=== PATIENT | female | born 1970 | race Caucasian/White ===

== ENCOUNTER 2017-04-14 17:37 | Emergency (ER) | payer BC ==
[2017-04-14 18:09] LABS: Hematocrit 40.4 % (37.0-47.0); Hemoglobin 14.2 gm/dL (12.5-16.0); Mean Cell Volume 103.3 fl (78-100); Mean Corpuscular Hemoglobin 36.3 pg (27-31); Mean Corpuscular Hgb Conc 35.1 g/dl (32-36); Neutrophil # 4.1 K/mm3 (1.3-6.0); Neutrophil % 53.2 % (42-75.0); Platelet Count 178 K/mm3 (150-450); Red Blood Count 3.91 M/mm3 (4.2-5.4); Red Cell Distribution Width 13.7 % (11.5-14.0); White Blood Count 7.6 K/mm3 (4.0-10.5)
[2017-04-14 18:27] LABS: ALT 49 U/L (19-67); AST 39 U/L (0-48); Albumin * 3.5 gm/dl (3.4-5.0); Alkaline Phosphatase * 80 U/L (50-170); Anion Gap 13.3 mmol/L (6.8-13.8); BUN/Creatinine Ratio 12.3 (9.0-21.6); Bilirubin, Total 0.7 mg/dL (0.0-1.1); Blood Urea Nitrogen 10 mg/dL (3-23); Ca. Corrected For Albumin 8.6 mg/dL (8.4-10.2); Calcium * 8.5 mg/dL (7.9-10.9); Carbon Dioxide 27.2 mmol/L (24-32.6); Chloride 102 mmol/L (97-106); Glucose * 114 mg/dL (70-110); Magnesium 1.9 mg/dL (1.2-2.8); Potassium 3.5 mmol/L (3.4-4.6); Sodium 139 mmol/L (132-142); Total Protein 7.5 gm/dL (6.2-8.2); Troponin I Less than 0.017 ng/ml (0.00-0.10)
[2017-04-14 18:31] VITALS: BP 171/101
--- NOTE | 2017-04-14 18:47 | ERNOTE ---
Chest Pain/Cardiac HPI Chief Complaint: Palpitations Time Seen by Provider: 04/14/17 17:53 Source: patient, family Exam Limitations: no limitations Immunizations: IMMUNIZATION HX Immunizations Up to Date Yes Allergies/Adverse Reactions: Allergies codeine Allergy (Verified 11/20/15 13:29) Hives Sulfa (Sulfonamide Antibiotics) Allergy (Verified 11/20/15 13:29) Hives Home Medications: HOME MEDICATIONS Metoprolol Tartrate [Lopressor] 25 mg PO DAILY 11/20/15 [Last Taken 11/20/15] Aspirin 81 mg PO DAILY 04/14/17 [Last Taken Unknown] Narrative: Patient was having episodes of what she described as palpitations prior to arrival. She felt as though her heart was perhaps skipping and racing a little bit, however the symptoms had resolved by the time she arrived here in the ER Timing: gone now Severity/Quality: mild Activities at Onset: none Modifying Factors - Improves: Present: nothing Modifying Factors - Worsens: Present: nothing Nitro Today/Relief: no nitro taken today Associated Symptoms: Present: denies symptoms Prior Chest Pain/Cardiac Workup: Reports: no prior cardiac workup Review of Systems - Review of Systems Constitutional: Present: See HPI EYE: Present: no symptoms reported ENT: Present: no symptoms reported Respiratory: Present: no symptoms reported Cardiology: Present: See HPI, palpitations Gastrointestinal/Abdominal: Present: no symptoms reported Genitourinary: Present: no symptoms reported Musculoskeletal: Present: no symptoms reported Skin: Present: no symptoms reported Neurological: Present: no symptoms reported Endocrine: Present: no symptoms reported Hematologic/Lymphatic: Present: no symptoms reported Psych: Present: no symptoms reported - Patient's Past Medical History Patient History - Medical: No pertinent hx Patient History - Cardiac/Respiratory: Hypertension Patient History - Cancer: No Hx of Cancer Patient History - Surgical Procedures: T & A, Other, Orthopedic Patient History - Other: None - Family History Mother Family History - Medical: Fibromyalgia, Rheumatoid Arthritis Father Family History - Medical: Renal Disease Family History - Cardiac/Respiratory: Hypertension - Social History Living Situations: home Abuse History: No History of abuse Psych History: No pertinent hx Smoking Status: Current every day smoker Have you smoked in the past 12 months: Yes Do you dip or chew tobacco: No Alcohol Use: rarely Drug Use: none - Immunizations Immunizations Up to Date: Yes Physical Exam - Physical Exam General Appearance: Present: wd/wn, alert, no apparent distress Eye Exam: Normal inspection: bilateral, PERRL: bilateral Ears, Nose, Throat: Present: normal ENT inspection, H, normal pharynx Neck: Present: normal inspection, nontender Respiratory: Present: no respiratory distress, normal breath sounds, no accessory muscle use, chest nontender, lungs clear Cardiovascular/Chest: Present: regular rate, rhythm, no murmur, normal peripheral pulses Gastrointestinal/Abdominal: Present: normal bowel sounds, nontender, nondistended, soft, no organomegaly Rectal Exam: Present: deferred Back Exam: Present: normal inspection, normal range of motion Extremity Exam: Present: normal inspection, non-tender, no edema, normal range of motion Neurological Exam: Present: alert, oriented, normal mood/affect Skin Exam: Present: normal color, warm/dry Lymphatic Exam: Present: no adenopathy ED Progress - Results and Orders Patient's Lab Results:: I have reviewed the patient's lab results. - Vital Signs Patient's Vital Signs:: I have reviewed the patient's vital signs. Vital Signs: Vital Signs 04/14/17 04/14/17 17:40 18:30 Temperature 37.3 C Pulse Rate 85 88 Respiratory 14 16 Rate Blood Pressure 145/96 171/101 O2 Sat by Pulse 99 99 Oximetry - EKG EKG: NSR - X-Ray X-Ray #1 X-Ray: chest Interpretation: Reviewed by me - Progress/Reassessment Chief Complaint: Palpitations Plan - Plan Plan: Unclear etiology for the palpitations, as the patient does not do illicit drugs or drink a lot of coffee. She states she does drink one can of diet pop a day that has caffeine in it. However no other cause can be found for the palpitations. Patient remained symptom free the entire time she was in the ER. Departure - Departure Clinical Impression: Intermittent palpitations Disposition: Home self-care Condition: Good Instructions: Palpitations, [id number] Referrals: Usama Villa MD [Primary Care Provider] -
== END 2017-04-14 18:52 | disposition home or self-care (01) ==
LOC: ER 17:37
DX: F17.200 Nicotine dependence, unspecified, uncomplicated (principal); R00.2 Palpitations

== ENCOUNTER 2017-05-13 08:47 | Emergency (ER) | payer BC ==
[2017-05-13 09:04] VITALS: BP 160/110
--- NOTE | 2017-05-13 09:39 | ERNOTE ---
Medical Problem HPI - General Chief Complaint: General Assessment Time Seen by Provider: 05/13/17 09:05 Source: patient, family Exam Limitations: no limitations - Immun/Allergies/Home Medications Immunizations: IMMUNIZATION HX Immunizations Up to Date Yes History of Influenza Vaccine No Hx Pneumococcal Vaccination No Allergies/Adverse Reactions: Allergies codeine Allergy (Verified 05/13/17 09:04) Hives Sulfa (Sulfonamide Antibiotics) Allergy (Verified 05/13/17 09:04) Hives Home Medications: HOME MEDICATIONS Metoprolol Tartrate [Lopressor] 25 mg PO DAILY 11/20/15 [Last Taken 11/20/15] Aspirin 81 mg PO DAILY 04/14/17 [Last Taken Unknown] Amlodipine Besylate [Norvasc] 2.5 mg PO DAILY #30 tab 05/13/17 [Last Taken Unknown] - History of Present History Narrative: Patient was riding in the car yesterday and had a 3-4 minute episode where she had double vision. She states that she could cover either eye and see fine however looking through both eyes is when she had double vision. Her only residual complaint right now is some faint numbness in the right temporal area. Timing: resolved prior to arrival Severity: mild Review of Systems - Review of Systems Constitutional: Present: See HPI EYE: Present: double vision - resolved after a few minutes yesterday ENT: Present: other - mild perception of numbness in the right temporal region Respiratory: Present: no symptoms reported Cardiology: Present: no symptoms reported Gastrointestinal/Abdominal: Present: no symptoms reported Genitourinary: Present: no symptoms reported Musculoskeletal: Present: no symptoms reported Skin: Present: no symptoms reported Neurological: Present: no symptoms reported Endocrine: Present: no symptoms reported Hematologic/Lymphatic: Present: no symptoms reported Psych: Present: no symptoms reported - Patient's Past Medical History Patient History - Medical: No pertinent hx Patient History - Cardiac/Respiratory: Hypertension Patient History - Cancer: No Hx of Cancer Patient History - Surgical Procedures: T & A, Other, Orthopedic Patient History - Other: None - Family History Mother Family History - Medical: Fibromyalgia, Rheumatoid Arthritis Father Family History - Medical: Renal Disease Family History - Cardiac/Respiratory: Hypertension - Social History Abuse History: No History of abuse Psych History: No pertinent hx - Immunizations Immunizations Up to Date: Yes Hx Pneumococcal Vaccination: No History of Influenza Vaccine: No Physical Exam - Physical Exam General Appearance: Present: wd/wn, alert, no apparent distress Eye Exam: Normal inspection: bilateral, PERRL: bilateral Ears, Nose, Throat: Present: normal ENT inspection, H, normal pharynx Neck: Present: normal inspection, nontender Respiratory: Present: no respiratory distress, normal breath sounds, no accessory muscle use, chest nontender, lungs clear Cardiovascular/Chest: Present: regular rate, rhythm, no murmur, normal peripheral pulses Gastrointestinal/Abdominal: Present: normal bowel sounds, nontender, nondistended, soft, no organomegaly Rectal Exam: Present: deferred Back Exam: Present: normal inspection, normal range of motion Extremity Exam: Present: normal inspection, non-tender, no edema, normal range of motion Neurological Exam: Present: alert, oriented, normal mood/affect Skin Exam: Present: normal color, warm/dry Lymphatic Exam: Present: no adenopathy ED Progress - Results and Orders Patient's Lab Results:: I have reviewed the patient's lab results. - Vital Signs Patient's Vital Signs:: I have reviewed the patient's vital signs. Vital Signs: Vital Signs 05/13/17 09:00 Temperature 36.8 C Pulse Rate 91 Respiratory 16 Rate Blood Pressure 160/110 O2 Sat by Pulse 99 Oximetry - CT/Ultrasound CT/Ultrasound Narrative: CT of the head was reviewed by me. - Progress/Reassessment Chief Complaint: General Assessment Progress:: Unchanged Plan - Plan Plan: I had a lengthy discussion with the patient regarding the need for both an ENT referral as well as the need for an MRI of the brain to get a better assessment of the likely Arnold-Chiari malformation. Patient understood my suggestions and will get the requisite referrals from her family doctor. Departure Clinical Impression: Diplopia Hypertension Qualifiers: Hypertension type: essential hypertension Qualified Code(s): I10 - Essential ( primary) hypertension - Departure Disposition: Home self-care Condition: Good Instructions: Diplopia, Chiari Malformation, Enlarged Adenoids Referrals: Usama Villa MD [Primary Care Provider] - Prescriptions: Amlodipine Besylate [Norvasc] 2.5 mg PO DAILY #30 tab
[2017-05-13 10:14] LABS: Hematocrit 42.2 % (37.0-47.0); Mean Cell Volume 102.9 fl (78-100); Mean Corpuscular Hemoglobin 36.6 pg (27-31); Mean Corpuscular Hgb Conc 35.5 g/dl (32-36); Mean Platelet Volume 11.1 fl (6.0-9.5); Neutrophil # 3.3 K/mm3 (1.3-6.0); Neutrophil % 61.5 % (42-75.0); Platelet Count 164 K/mm3 (150-450); Red Cell Distribution Width 13.8 % (11.5-14.0); White Blood Count 5.3 K/mm3 (4.0-10.5)
[2017-05-13 10:28] LABS: Albumin * 3.3 gm/dl (3.4-5.0); Anion Gap 11.3 mmol/L (6.8-13.8); BUN/Creatinine Ratio 11.5 (9.0-21.6); Bilirubin, Total 1.6 mg/dL (0.0-1.1); Calcium * 8.8 mg/dL (7.9-10.9); Carbon Dioxide 30.7 mmol/L (24-32.6); Magnesium 1.8 mg/dL (1.2-2.8); Total Protein 7.2 gm/dL (6.2-8.2)
== END 2017-05-13 11:00 | disposition home or self-care (01) ==
LOC: ER 08:47
DX: H53.2 Diplopia (principal); I10 Essential (primary) hypertension